=== PATIENT | female | born 1965 | race Caucasian/White ===

== ENCOUNTER 2020-10-09 07:57 | Outpatient (REF) | payer OTHER, SELFPAY ==
[2020-10-09 08:59] LABS: Hematocrit 46.4 % (37-47); Mean Corpuscular HGB Conc 32.3 g/dl (31.0-35.0); Mean Corpuscular Hemoglobin 33.3 pg (27.0-33.0); Mean Corpuscular Volume 103.1 fL (80-98); Mean Platelet Volume 9.9 fL (9.4-12.3); Platelet Count 216 X10*3/uL (160-400); Red Cell Distribution Width 12.3 % (11.0-16.0); White Blood Count 6.6 X10*3/uL (4.8-10.8)
[2020-10-09 09:20] LABS: Alanine Aminotransferase 13 U/L (0-31); Albumin Level 4.2 g/dL (3.5-5.0); Alkaline Phosphatase 95 U/L (39-117); Anion Gap 11 (12-20); Aspartate Amino Transferase 14 U/L (5-31); Bilirubin Direct 0.3 mg/dL (0.0-0.5); Bilirubin Total 0.7 mg/dL (0.0-1.0); Blood Urea Nitrogen 12 mg/dL (9-16); Carbon Dioxide 28 mmol/L (22-29); Chloride 107 mmol/L (96-108); Cholesterol 216 mg/dL; Estimated Glomerular Filt Rate > 60; Glucose Fasting 83 mg/dL (60-99); HDL Cholesterol 57 mg/dL; LDL Cholesterol Calculated 135 mg/dl; Potassium 4.3 mmol/L (3.3-5.1); Sodium 142 mmol/L (135-145); Total Protein 6.4 g/dL (6.5-8.0); Triglycerides 121 mg/dL
[2020-10-09 09:41] LABS: TSH reflex Free T4 0.13 uIU/mL (0.32-4.0)
[2020-10-09 10:13] LABS: Free T4 (Free Thyroxine) 0.99 ng/dL (0.71-1.85)
== END 2020-10-09 07:58 | disposition home or self-care (01) ==
LOC: HO.LAB 07:57
PROVIDERS: Visit Provider Hospitalist
DX: Z00.00 Encounter for general adult medical examination without abnormal findings (principal); G35 Multiple sclerosis
CPT/HCPCS: 36415; 80048; 80061; 80076; 84439; 84443; 85027

== ENCOUNTER 2020-12-13 07:21 | Outpatient (REF) | payer OTHER, SELFPAY ==
[2020-12-13 11:33] LABS: TSH reflex Free T4 < 0.01 uIU/mL (0.32-4.0)
[2020-12-13 12:35] LABS: Free T4 (Free Thyroxine) 1.01 ng/dL (0.71-1.85)
== END 2020-12-13 07:22 | disposition home or self-care (01) ==
LOC: HO.WFDLDS 07:21
PROVIDERS: Visit Provider Hospitalist
DX: R79.89 Other specified abnormal findings of blood chemistry (principal)
CPT/HCPCS: 36415; 84439; 84443

== ENCOUNTER 2021-02-10 12:01 | Outpatient (REF) | payer OTHER, SELFPAY ==
[2021-02-10 14:57] LABS: Free T4 (Free Thyroxine) 1.01 ng/dL (0.71-1.85); Thyroid Stimulating Hormone 0.01 uIU/mL (0.32-4.0)
[2021-02-11 08:47] LABS: Lyme Abs Screen <0.90 index; Triiodothyronine T3 Total 118 ng/dL (76-181)
== END 2021-02-10 12:02 | disposition home or self-care (01) ==
LOC: HO.WFDLDS 12:01
PROVIDERS: Visit Provider Family Medicine
DX: T14.8XXA Other injury of unspecified body region, initial encounter (principal); W57.XXXA Bitten or stung by nonvenomous insect and other nonvenomous arthropods, initial encounter; R79.89 Other specified abnormal findings of blood chemistry
CPT/HCPCS: 36415; 84439; 84443; 84480; 86617; 86618

== ENCOUNTER 2022-01-19 08:08 | Outpatient (REF) | payer OTHER, SELFPAY ==
[2022-01-23 18:11] LABS: IgA 84 mg/dL (47-310); IgG 602 mg/dL (600-1640); IgM 105 mg/dL (50-300)
[2022-01-25 10:32] LABS: Hepatitis BE Antibody NON-REACTIVE (NON-REACTIVE)
== END 2022-01-19 08:09 | disposition home or self-care (01) ==
LOC: HO.WFDLDS 08:08
PROVIDERS: Visit Provider Hospitalist
DX: G35 Multiple sclerosis (principal)
CPT/HCPCS: 36415; 82784; 86707

== ENCOUNTER 2022-02-14 14:44 | Outpatient (REF) | payer OTHER, SELFPAY | END 2022-02-14 14:45 | disposition home or self-care (01) | LOC: HO.MDS 14:44 | PROVIDERS: Visit Provider Internal Medicine Rheumatology | DX: G35 Multiple sclerosis (principal) | CPT/HCPCS: 96365; J2930 ==

== ENCOUNTER 2022-02-15 13:26 | Outpatient (REF) | payer OTHER, SELFPAY | END 2022-02-15 13:27 | disposition home or self-care (01) | LOC: HO.MDS 13:26 | PROVIDERS: Visit Provider Internal Medicine Rheumatology | DX: G35 Multiple sclerosis (principal) | CPT/HCPCS: 96365; J2930 ==

== ENCOUNTER 2022-02-16 14:42 | Outpatient (REF) | payer OTHER, SELFPAY | END 2022-02-16 14:43 | disposition home or self-care (01) | LOC: HO.MDS 14:42 | PROVIDERS: Visit Provider Internal Medicine Rheumatology | DX: G35 Multiple sclerosis (principal) | CPT/HCPCS: 96365; J2930 ==

== ENCOUNTER 2022-02-17 07:07 | Outpatient (REF) | payer OTHER, SELFPAY | END 2022-02-17 07:08 | disposition home or self-care (01) | LOC: HO.MDS 07:07 | PROVIDERS: Visit Provider Internal Medicine Rheumatology | DX: G35 Multiple sclerosis (principal) | CPT/HCPCS: 96365; J2930 ==

== ENCOUNTER → 2022-03-21 09:32 | Outpatient (BNVA) | payer OTHER, SELFPAY | PROVIDERS: PCP Hospitalist; Visit Provider Psychiatry & Neurology Neurology | DX: G35 Multiple sclerosis (principal); R20.2 Paresthesia of skin; G47.9 Sleep disorder, unspecified; R26.9 Unspecified abnormalities of gait and mobility | CPT/HCPCS: 99202 ==

== ENCOUNTER → 2022-04-13 09:56 | Outpatient (REF) | payer OTHER, SELFPAY | LOC: HO.SL 09:56 | PROVIDERS: PCP Hospitalist; Visit Provider Psychiatry & Neurology Neurology | DX: G47.10 Hypersomnia, unspecified (principal); R06.83 Snoring | CPT/HCPCS: 95806 ==

== ENCOUNTER 2022-05-15 12:33 | Outpatient (REF) | payer OTHER, SELFPAY ==
[2022-05-15 13:29] LABS: Hematocrit 45.1 % (37.0-47.0); Hemoglobin 15.4 g/dl (12.0-16.0); Mean Corpuscular HGB Conc 34.1 g/dl (31.0-35.0); Mean Corpuscular Hemoglobin 35.3 pg (27.0-33.0); Mean Corpuscular Volume 103.4 fL (80.0-98.0); Mean Platelet Volume 9.9 fL (9.4-12.3); Platelet Count 228 X10*3/uL (160-400); Red Blood Count 4.36 X10*6/uL (4.20-5.50); Red Cell Distribution Width 13.1 % (11.0-16.0); White Blood Count 8.6 X10*3/uL (4.8-10.8)
[2022-05-15 13:32] LABS: Appearance Urine Clear; Color Urine Yellow; Glucose Urine UA Negative (Negative); Leukocyte Esterase Urine Negative (Negative); Nitrite Urine Negative (Negative); PH 6.5 (5.0-9.0); Specific Gravity - Urine 1.025 (1.005-1.025); Urine Blood Negative (Negative); Urine Ketones Trace mg/dL (Negative); Urine Protein Negative (Neg-Trace)
[2022-05-15 13:52] LABS: Alanine Aminotransferase 17 U/L (0-31); Albumin Level 3.9 g/dL (3.5-5.0); Alkaline Phosphatase 94 U/L (39-117); Anion Gap 15 (12-20); Aspartate Amino Transferase 19 U/L (5-31); Bilirubin Total 0.5 mg/dL (0.0-1.0); Blood Urea Nitrogen 17 mg/dL (9-16); Carbon Dioxide 27 mmol/L (22-29); Chloride 103 mmol/L (96-108); Cholesterol 215 mg/dL; Estimated Glomerular Filt Rate > 60; Glucose Fasting 84 mg/dL (60-99); HDL Cholesterol 61 mg/dL; LDL Cholesterol Calculated 121 mg/dl; Potassium 3.7 mmol/L (3.3-5.1); Sodium 141 mmol/L (135-145); Total Protein 5.9 g/dL (6.5-8.0); Triglycerides 169 mg/dL
[2022-05-15 14:12] LABS: TSH reflex Free T4 1.04 uIU/mL (0.32-4.0)
== END 2022-05-15 12:34 | disposition home or self-care (01) ==
LOC: HO.LAB 12:33
PROVIDERS: PCP Hospitalist; Visit Provider Hospitalist
DX: Z00.00 Encounter for general adult medical examination without abnormal findings (principal); Z11.3 Encounter for screening for infections with a predominantly sexual mode of transmission
CPT/HCPCS: 36415; 80053; 80061; 81003; 84443; 85027

== ENCOUNTER 2022-06-13 12:46 | Outpatient (REF) | payer OTHER, SELFPAY ==
[2022-06-13 16:56] LABS: Influenza A PCR NEGATIVE (Negative); Influenza B PCR NEGATIVE (Negative); Resp Syncy Virus RNA Qual PCR NEGATIVE (Negative); SARS COV2 PCR INHOUSE POSITIVE (Negative)
== END 2022-06-13 12:47 | disposition home or self-care (01) ==
LOC: HO.LAB 12:46
PROVIDERS: Visit Provider Family Medicine
DX: Z20.822 Contact with and (suspected) exposure to COVID-19 (principal); B34.9 Viral infection, unspecified
CPT/HCPCS: 0241U